=== PATIENT | male | born 1950 | race Caucasian/White ===

== ENCOUNTER → 2017-04-28 | Outpatient (CLI) | payer OTHER | LOC: FIMAGING 17:40 | PROVIDERS: ATTEND Family Medicine | DX: M25.551 Pain in right hip (principal) ==

== ENCOUNTER 2017-08-13 10:15 | Inpatient (IN) | payer OTHER ==
[2017-08-13] MEDS ORDERED: NS 1,000 ML IV ONE (10:41)
--- NOTE | 2017-08-13 10:43 | EDPHY ---
H & P Stated Complaint: RLQ abdo pain since 11.30pm and nausea. Time Seen by Provider: 08/13/17 10:33 HPI/ROS: CHIEF COMPLAINT: Abdominal pain HISTORY OF PRESENT ILLNESS: The patient is a 67-year-old man who comes to the emergency department complaining of right lower quadrant abdominal pain that began last night. No fever. Nausea but no vomiting. No diarrhea. No urinary symptoms. He has a history of robotic surgery for prostatic cancer as well as chemotherapy radiation to his abdomen for lymphoma 5 years ago. Yesterday he was shoveling and did not notice any pain or injury. After dinner last night however he began to have pain. REVIEW OF SYSTEMS: Constitutional: denies: chills, fever, recent illness, recent injury EENTM: denies: blurred vision, double vision, nose congestion Respiratory: denies: cough, shortness of breath Cardiac: denies: chest pain, irregular heart rate, lightheadedness, palpitations Gastrointestinal/Abdominal: See HPI Genitourinary: denies: dysuria, frequency, hematuria, pain Musculoskeletal: denies: joint pain, muscle pain Skin: denies: lesions, rash, jaundice, bruising Neurological: denies: headache, numbness, paresthesia, tingling, dizziness, weakness Hematologic/Lymphatic: denies: blood clots, easy bleeding, easy bruising Immunologic/allergic: denies: HIV/AIDS, transplant EXAM: GENERAL: Well-appearing, well-nourished and in no acute distress. HEAD: Atraumatic, normocephalic. EYES: Pupils equal round and reactive to light, extraocular movements intact, sclera anicteric, conjunctiva are normal. ENT: TMs normal, nares patent, oropharynx clear without exudates. Moist mucous membranes. NECK: Normal range of motion, supple without lymphadenopathy or JVD. LUNGS: Breath sounds clear to auscultation bilaterally and equal. No wheezes rales or rhonchi. HEART: Regular rate and rhythm without murmurs, rubs or gallops. ABDOMEN: Mild tender right lower quadrant, normoactive bowel sounds. No guarding, no rebound. No masses appreciated. BACK: No CVA tenderness, no spinal tenderness, step-offs or deformities EXTREMITIES: Normal range of motion, no pitting or edema. No clubbing or cyanosis. NEUROLOGICAL: Cranial nerves II through XII grossly intact. Normal speech, normal gait. 5/5 strength, normal movement in all extremities, normal sensation PSYCH: Normal mood, normal affect. SKIN: Warm, dry, normal turgor, no visible rashes or lesions. Source: Patient Exam Limitations: No limitations - Personal History Current Tetanus Diphtheria and Acellular Pertussis (TDAP): Yes Tetanus Vaccine Date: 2004 - Medical/Surgical History Hx Asthma: No Hx Chronic Respiratory Disease: No Hx Diabetes: No Hx Cardiac Disease: No Hx Renal Disease: No Hx Cirrhosis: No Hx Alcoholism: No Hx HIV/AIDS: No Hx Splenectomy or Spleen Trauma: No Other PMH: Prostate cancer. Lymphoma. - Family History Significant Family History: No pertinent family hx - Social History Smoking Status: Never smoked Alcohol Use: Sober Drug Use: None Constitutional: Initial Vital Signs Temperature (C) 36.8 C 08/13/17 10:17 Heart Rate 65 08/13/17 10:17 Respiratory Rate 16 08/13/17 10:17 Blood Pressure 145/77 H 08/13/17 10:17 O2 Sat (%) 97 08/13/17 10:17 O2 Delivery Mode Room Air Allergies/Adverse Reactions: sulfamethoxazole [From Junra] Allergy (Unknown, Verified 12/23/11 13:19) Unknown trimethoprim [From Junra] Allergy (Unknown, Verified 12/23/11 13:19) Unknown latex Allergy (Verified 08/13/17 13:08) Home Medications: Medication Instructions Recorded Aspirin EC [Aspirin EC 81 mg (*)] 81 - 162 mg PO DAILY@1200 08/13/17 Ezetimibe [Zetia 10 MG (*)] 5 mg PO DAILY 08/13/17 Herbals/Supplements -Info Only 1 ea PO DAILY 08/13/17 Multivitamins [Multivitamin (*)] 1 each PO DAILY 08/13/17 [place]-3 Fatty Acids [Fish Oil 1000 1,000 mg PO DAILY 08/13/17 mg (*)] Pravastatin Sodium [Pravachol] 5 mg PO DAILY 08/13/17 Pregabalin [Lyrica 75mg (*)] 75 mg PO TID 08/13/17 Vitamin B Complex [B Complex] 1 each PO DAILY 08/13/17 traZODone [traZODONE 50MG (*)] 50 mg PO HS PRN 08/13/17 Medical Decision Making ED Course/Re-evaluation: 12:[address]. discussed the case Dr. Cantor who will consult. Patient continues to decline pain medication. He is allergic to sulfa. Differential Diagnosis: Partial list of the Differential diagnosis considered include but were not limited to; appendicitis, constipation and although unlikely based on the history and physical exam, I also considered abscess, ischemia, volvulus. - Data Points Laboratory Results: Laboratory Results 08/13/17 10:55 08/13/17 10:55 Medications Given: Acetaminophen (Tylenol) 1,000 mg PO Q8H KEVON Stop: 02/09/18 14:14 Last Admin: 08/14/17 12:45 Dose: Not Given Enoxaparin Sodium (Lovenox) 30 mg SC BID KEVON Stop: 02/09/18 20:59 Last Admin: 08/14/17 09:10 Dose: 30 mg Dextrose/Sodium Chloride (D5w 1/2 Ns) 1,000 mls @ 100 mls/hr IV CONT KEVON Stop: 02/09/18 14:14 Last Admin: 08/13/17 23:44 Dose: 1,000 mls Ertapenem 1 gm/ Sodium (Chloride) 100 mls @ 200 mls/hr IV DAILY KEVON PRN Reason: Protocol Stop: 09/13/17 13:59 Last Admin: 08/14/17 14:01 Dose: 100 mls Ketorolac Tromethamine (Toradol) 15 mg IVP Q6HRS KEVON Stop: 08/18/17 17:59 Last Admin: 08/14/17 16:20 Dose: Not Given Rcces-5-Ahuf Ethyl Esters (Fish Oil) 1,000 mg PO DAILY KEVON Stop: 02/10/18 08:59 Last Admin: 08/14/17 09:10 Dose: 1,000 mg Pregabalin (Lyrica) 75 mg PO TID KEVON Stop: 02/09/18 15:59 Last Admin: 08/14/17 16:28 Dose: 75 mg Trazodone HCl (Trazodone) 75 mg PO HS PRN PRN Reason: Sleep/Insomnia Stop: 02/09/18 21:06 Last Admin: 08/13/17 23:44 Dose: 75 mg Vitamin B Complex (Vitamin B Complex) 1 ea PO DAILY KEVON Stop: 02/10/18 08:59 Last Admin: 08/14/17 09:10 Dose: 1 ea Discontinued Medications Acetaminophen (Tylenol) 1,000 mg PO Q8H KEVON Stop: 02/09/18 14:14 Last Admin: 08/13/17 16:25 Dose: Not Given Sodium Chloride (Ns) 1,000 mls @ 0 mls/hr IV EDNOW ONE; Wide Open PRN Reason: Protocol Stop: 08/13/17 10:42 Last Admin: 08/13/17 11:00 Dose: 1,000 mls Ertapenem 1 gm/ Sodium (Chloride) 100 mls @ 200 mls/hr IV EDNOW ONE PRN Reason: Protocol Stop: 08/13/17 13:20 Last Admin: 08/13/17 13:28 Dose: 100 mls Pregabalin (Lyrica) 75 mg PO TID [facility] Stop: 02/09/18 15:59 Last Admin: 08/13/17 18:48 Dose: Not Given Departure - Departure Disposition: [facility] In[facility] Acute Clinical Impression: Appendicitis Qualifiers: Appendicitis type: acute appendicitis Acute appendicitis type: unspecified acute appendicitis type Qualified Code(s): K35.80 - Unspecified acute appendicitis Condition: Fair
[2017-08-13 11:07] LABS: % IMMATURE GRANULYOCYTES 0.3 % (0.0-1.1); ABSOLUTE IMMATURE GRANULOCYTES 0.02 10^3/uL (0.00-0.10); ADD DIFF? NO; ADD MORPH? NO; ADD SCAN? NO; ATYPICAL LYMPHOCYTE FLAG 10 (0-99); FRAGMENT RBC FLAG 0 (0-99); HEMATOCRIT 39.2 % (40.0-51.0); HEMOGLOBIN 13.4 g/dL (13.7-17.5); LEFT SHIFT FLG 0 (0-99); LIPEMIA HEMOLYSIS FLAG 90 (0-99); MEAN CELL HEMOGLOBIN 32.8 pg (27.9-34.1); MEAN CELL HEMOGLOBIN CONCENTR. 34.2 g/dL (32.4-36.7); MEAN CELL VOLUME 96.1 fL (81.5-99.8); MEAN PLATELET VOLUME 9.1 fL (8.7-11.7); PLATELET CLUMPS FLAG 0 (0-99); PLATELET COUNT 146 10^3/uL (150-400); RED BLOOD CELL COUNT 4.08 10^6/uL (4.40-6.38); RED CELL DISTRIBUTION WIDTH 12.4 % (11.5-15.2)
[2017-08-13 11:34] LABS: ALANINE AMINOTRANSFERASE 45 IU/L (21-72); ALKALINE PHOSPHATASE 71 IU/L (38-126); ANION GAP 11 mEq/L (8-16); ASPARTATE AMINOTRANSFERASE 40 IU/L (17-59); BILIRUBIN,TOTAL 0.9 mg/dL (0.1-1.4); BILIRUBIN-UNCONJUGATED 0.9 mg/dL (0.0-1.1); CALCIUM 9.2 mg/dL (8.5-10.4); CARBON DIOXIDE 26 mEq/l (22-31); CHLORIDE 100 mEq/L (97-110); CREATININE 0.9 mg/dL (0.7-1.3); GLOMERULAR FILTRATION RATE > 60; GLUCOSE 104 mg/dL (70-100); SODIUM 137 mEq/L (134-144); TOTAL PROTEIN 6.3 g/dL (6.3-8.2)
[2017-08-13] MEDS ORDERED: IOPAMIDOL (ISOVUE-300) 100 ML BTL ONE (11:47)
[2017-08-13 12:15] LABS: COLOR YELLOW; LEUKOCYTE ESTERASE,URINE NEGATIVE (NEGATIVE); NITRITE,URINE NEGATIVE (NEGATIVE)
[2017-08-13 12:17] LABS: MUCUS TRACE /lpf (NONE-1+)
[2017-08-13 12:21] LABS: WBC,URINE NONE SEEN /hpf (0-3)
[2017-08-13] MEDS ORDERED: ERTAPENEM 1 GM in NS 100 ML IV ONE (12:51)
[2017-08-13] MEDS ORDERED: ONDANSETRON 4 MG/2 ML VIAL IVP PRN (14:08)
[2017-08-13] MEDS ORDERED: traZODone 50 MG TAB PO PRN (14:14)
[2017-08-13] MEDS ORDERED: ACETAMINOPHEN 325 MG TAB PO SCH (14:15)
--- NOTE | 2017-08-13 14:51 | GHP ---
[f rep st] PREOP HISTORY AND PHYSICAL DATE OF ADMISSION: 08/13/2017 ADMITTING DIAGNOSIS: Possible subacute appendicitis. HISTORY OF PRESENT ILLNESS: The patient is a 67-year-old white male who was digging in a garden yesterday. He quit approximately 4:30. When he got back to his home in [place] at 10:30, he had sweet potato chips and ice cream. He had a slightly upset stomach, but he usually does after fatty food meal. He then developed right lower quadrant pain that did not improve. He moved his bowels; it was not better. He tried an hour later and again no improvement. The pain localized to the right lower quadrant. It was painful for him with each step and painful with cough. He had no weight loss. He has not had an upper respiratory tract infection recently but 2-1/2 half weeks ago was just the tail end of one. He did have a loose stool once on August 07. He has not had any travel outside the [place] or antibiotic use in the last 6 months. He has had no prior similar symptoms. Prior abdominal surgery has been a robotic prostatectomy. There is no history of inflammatory bowel disease. SOCIAL HISTORY: He does not smoke. He does not drink on a regular basis. He does have 1-2 glasses of wine per week. ALLERGIES: Sulfa drugs manifested by a rash. He may have a latex allergy. 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 He was treated with both chemotherapy and radiation. The radiation was abdominal. This was diagnosed through a left inguinal node biopsy site. He also has had a robotic resection of his prostate. Since the robotic prostate surgery, he has complained of pain in his left leg from thigh to foot and his right knee, including his calf and ankle. MEDICATIONS: He initially took Lyrica 50 mg 3 times a day for that leg pain but , after his radiation therapy and chemotherapy, it was increased to 75. He does take trazodone 50 mg on a rare basis. He does take fish oil, multivitamin , vitamin B complex, an 81 mg aspirin. He takes pravastatin every 3 days and Zetia every 3 days at 5 mg each. If he takes it every other day, he gets abdominal cramping. PAST SURGICAL HISTORY: Other surgeries include a rotator cuff and labral surgery on the left and rotator cuff surgery on the right. Other surgeries include a tonsillectomy. He has had a transfusion with his lymphoma as well as an autologous stem cell transfusion. There is no history of rheumatic fever, tuberculosis, or hepatitis. REVIEW OF SYSTEMS: He used to be hypertensive when he was working but, now that he is retired, he no longer requires medication. He did have an episode of chest pain and underwent an angio. There was some narrowing noted but nothing that was thought to require a stent. He wears lenses for visual correction. He has dental crowns x2. He has hay fever. He used to have exercise-induced asthma and he would bicycle race, but does not anymore. He does have urinary dribbling after his prostate surgery. No limits on his activities. No history of steroid use. PHYSICAL EXAMINATION: GENERAL: He is awake and alert, conversant and pleasant. LYMPH NODES: There is no cervical, supraclavicular, axillary or inguinal lymphadenopathy. NECK: There are no carotid bruits. LUNGS: Clear to auscultation. CARDIAC: Shows S1, S2 to be normal. ABDOMEN: Psoas and obturator signs to be negative. He has tenderness with cough that is 7 on a scale of 1-10, inferior to McBurney's point. To palpation , his tenderness on a scale of 1-10 is 1 in the left upper quadrant, 2 in the left mid abdomen, 1 in left lower quadrant, 1 in epigastrium, 2 in the periumbilical region, 1 in the suprapubic region, 1 in the right upper quadrant , 3 in the right mid abdomen, 2 in the right lower quadrant. LABORATORY DATA: His urinalysis shows specific gravity 1.016. His creatinine is 0.9. BUN is 20. His glucose is 106. His white count is 6.2 with 86% neutrophils. Hematocrit is 34. CT of his abdomen shows calcifications in his pancreas, consistent with chronic pancreatitis. His distal pancreas is almost completely gone except for a prominent pancreatic duct. He does have an appendix which at one point is 8 mm and maybe slightly thickened. There is no real periappendiceal stranding. There also is not any obvious lymphadenopathy. IMPRESSION: At this point, I feel he may have a low-grade early appendicitis, but I cannot totally make that diagnosis at this time. Given his prior issues, I think an antibiotic approach is reasonable in this case. He will be admitted to the hospital for antibiotic therapy. /[id number]/MODL MTDD
[2017-08-13] MEDS: D5W 1/2 NS 1,000 ML IV SCH ×2 (15:33→23:44)
[2017-08-13] MEDS ORDERED: PREGABALIN 75 MG CAP PO SCH (16:00)
[2017-08-13] MEDS: ACETAMINOPHEN 500 MG TAB PO SCH ×2 (16:24→22:06)
[2017-08-13] MEDS: KETOROLAC 15 MG/1 ML SDV IVP SCH (16:41)
[2017-08-13] MEDS: ENOXAPARIN 30 MG/0.3 ML SYR SC SCH (19:38)
[2017-08-13] MEDS: PREGABALIN 75 MG CAP PO SCH (22:05)
[2017-08-13] MEDS: traZODone 50 MG TAB PO PRN (23:44)
[2017-08-14 05:18] LABS: % IMMATURE GRANULYOCYTES 0.5 % (0.0-1.1); ABSOLUTE IMMATURE GRANULOCYTES 0.03 10^3/uL (0.00-0.10); ADD DIFF? NO; ADD MORPH? NO; ADD SCAN? NO; ATYPICAL LYMPHOCYTE FLAG 10 (0-99); FRAGMENT RBC FLAG 0 (0-99); HEMATOCRIT 34.7 % (40.0-51.0); HEMOGLOBIN 12.1 g/dL (13.7-17.5); LEFT SHIFT FLG 0 (0-99); LIPEMIA HEMOLYSIS FLAG 90 (0-99); MEAN CELL HEMOGLOBIN 33.4 pg (27.9-34.1); MEAN CELL HEMOGLOBIN CONCENTR. 34.9 g/dL (32.4-36.7); MEAN CELL VOLUME 95.9 fL (81.5-99.8); MEAN PLATELET VOLUME 9.2 fL (8.7-11.7); PLATELET CLUMPS FLAG 10 (0-99); PLATELET COUNT 138 10^3/uL (150-400); RED BLOOD CELL COUNT 3.62 10^6/uL (4.40-6.38); RED CELL DISTRIBUTION WIDTH 12.5 % (11.5-15.2)
[2017-08-14 05:31] LABS: ANION GAP 9 mEq/L (8-16); CALCIUM 8.3 mg/dL (8.5-10.4); CARBON DIOXIDE 25 mEq/l (22-31); CHLORIDE 101 mEq/L (97-110); GLOMERULAR FILTRATION RATE > 60; GLUCOSE 137 mg/dL (70-100); SODIUM 135 mEq/L (134-144)
[2017-08-14] MEDS: OMEGA-3 FATTY ACIDS 1,000 MG CAP PO SCH (09:10)
[2017-08-14] MEDS: VITAMIN B COMPLEX 1 EA CAP/TAB PO SCH (09:10)
[2017-08-14] MEDS: PREGABALIN 75 MG CAP PO SCH ×3 (09:10→23:22)
[2017-08-14] MEDS: KETOROLAC 15 MG/1 ML SDV IVP SCH ×4 (09:10→16:20)
[2017-08-14] MEDS: ACETAMINOPHEN 500 MG TAB PO SCH ×3 (09:10→21:47)
[2017-08-14] MEDS: ENOXAPARIN 30 MG/0.3 ML SYR SC SCH ×2 (09:10→21:47)
--- NOTE | 2017-08-14 10:55 | SOAPPROG ---
SOAP Progress Note Assessment/Plan: Assessment/Plan: 67yo M c extensive PMH c poss early appendicitis - Overnight, afebrile and pain well controlled. His WBC remains normal at 6 from 6 without shift. - He is minimally tender to palpation in the RLQ and his exam is overall reassuring - Will cont conservative management given the patients extensive medical and surgical history and given the progress made over the last 24hrs. Given his extensive PMH/PSH the patient will need to remain inpatient in order to receive proper treatment. - Will plan to start clears today and see how he tolerates 08/14/17 10:53 Subjective: Pain still there, maybe better but not worse. No fevers. Wants to eat Objective: Vital Signs Temp Pulse Resp BP Pulse Ox 36.7 C 66 16 104/61 92 08/14/17 08:00 08/14/17 08:00 08/14/17 08:00 08/14/17 08:00 08/14/17 08:00 Laboratory Results 08/14/17 04:34 08/14/17 04:34 08/13/17 08/14/17 08/15/17 05:59 05:59 05:59 Intake Total 672 Balance 672 ICD10 Worksheet Patient Problems: Problems Problem Status Onset Appendicitis Acute
[2017-08-14] MEDS: ERTAPENEM 1 GM in NS 100 ML IV SCH (14:01)
--- NOTE | 2017-08-14 16:47 | ASMTCMCOM ---
CM Note CM Note Notes: Spoke w/RN, anticipate pt will dc home w/support of when medically stable. CM available for any changes. Date Signed: 08/14/2017 04:46 PM Electronically Signed By:Soni Castañeda RN
[2017-08-14] MEDS: traZODone 50 MG TAB PO PRN (23:23)
[2017-08-14] MEDS: D5W 1/2 NS 1,000 ML IV SCH (23:23)
[2017-08-15] MEDS: KETOROLAC 15 MG/1 ML SDV IVP SCH ×4 (00:37→17:47)
[2017-08-15 05:36] LABS: % IMMATURE GRANULYOCYTES 0.4 % (0.0-1.1); ABSOLUTE IMMATURE GRANULOCYTES 0.02 10^3/uL (0.00-0.10); ADD DIFF? NO; ADD MORPH? NO; ADD SCAN? NO; ATYPICAL LYMPHOCYTE FLAG 10 (0-99); FRAGMENT RBC FLAG 0 (0-99); HEMATOCRIT 32.5 % (40.0-51.0); LEFT SHIFT FLG 0 (0-99); LIPEMIA HEMOLYSIS FLAG 90 (0-99); MEAN CELL HEMOGLOBIN CONCENTR. 33.8 g/dL (32.4-36.7); MEAN CELL VOLUME 97.6 fL (81.5-99.8); MEAN PLATELET VOLUME 9.1 fL (8.7-11.7); PLATELET CLUMPS FLAG 0 (0-99); PLATELET COUNT 127 10^3/uL (150-400); RED BLOOD CELL COUNT 3.33 10^6/uL (4.40-6.38); RED CELL DISTRIBUTION WIDTH 12.6 % (11.5-15.2)
[2017-08-15] MEDS: ACETAMINOPHEN 500 MG TAB PO SCH ×3 (06:07→23:35)
--- NOTE | 2017-08-15 07:49 | SOAPPROG ---
SOAP Progress Note Assessment/Plan: PAD#2 08/15/2017 Assessment: Appendicitis - Pain improved. VVS. WBC -ok - Non-operative approach for early appendicitis seems to be effective Chronic Pancreatitis - HbA1C 6.0 - patient stable Plan: Appendicitis/RLQ pain - Continue clear liquids and IV antibiotics until pain resolves the switch to oral antibiotics Chronic pancreatitis - Will refer to PMD for consideration for consideration of pancreatic enzyme supplements and Glucose monitoring 08/15/17 07:51 Subjective: Pain still present but improved Objective: Vital Signs Temp Pulse Resp BP Pulse Ox 36.7 C 47 L 15 112/64 91 L 08/15/17 04:00 08/15/17 04:00 08/15/17 04:00 08/15/17 04:00 08/15/17 04:00 Laboratory Results 08/15/17 04:34 08/14/17 04:34 08/14/17 08/15/17 08/16/17 05:59 05:59 05:59 Intake Total 672 2400 Balance 672 2400 - Time Spent With Patient Time Spent With Patient: 25 - Pending Discharge Pending Discharge Within 24 Hours: No Pending Discharge Within 48 Hours: No Physical Exam - Physical Exam General Appearance: WD/WN, alert, mild distress Neck: non-tender, full range of motion, supple Respiratory: chest non-tender, lungs clear, normal breath sounds Cardiac/Chest: regular rate, rhythm Abdomen: normal bowel sounds, soft, other (Still mildly tender in RLQ with cough ) Male Genitalia: deferred Rectal: deferred Back: Normal inspection Skin: normal color, warm/dry Neuro/Psych: no motor/sensory deficits, alert, normal mood/affect ICD10 Worksheet Patient Problems: Problems Problem Status Onset Appendicitis Acute
[2017-08-15] MEDS ORDERED: PRAVASTATIN SODIUM 10 MG TAB PO SCH (09:00)
[2017-08-15] MEDS ORDERED: EZETIMIBE 10 MG TAB PO SCH (09:00)
[2017-08-15] MEDS: ERTAPENEM 1 GM in NS 100 ML IV SCH (09:04)
[2017-08-15] MEDS: OMEGA-3 FATTY ACIDS 1,000 MG CAP PO SCH (09:05)
[2017-08-15] MEDS: VITAMIN B COMPLEX 1 EA CAP/TAB PO SCH (09:05)
[2017-08-15] MEDS: PREGABALIN 75 MG CAP PO SCH ×3 (09:05→22:51)
[2017-08-15] MEDS: ENOXAPARIN 30 MG/0.3 ML SYR SC SCH ×2 (09:05→23:35)
[2017-08-15] MEDS: traZODone 50 MG TAB PO PRN (22:51)
[2017-08-16] MEDS: KETOROLAC 15 MG/1 ML SDV IVP SCH ×4 (00:25→17:55)
[2017-08-16] MEDS: ACETAMINOPHEN 500 MG TAB PO SCH ×3 (06:58→21:52)
[2017-08-16] MEDS: OMEGA-3 FATTY ACIDS 1,000 MG CAP PO SCH (08:20)
[2017-08-16] MEDS: PREGABALIN 75 MG CAP PO SCH ×3 (08:20→21:48)
[2017-08-16] MEDS: VITAMIN B COMPLEX 1 EA CAP/TAB PO SCH (08:20)
[2017-08-16] MEDS: ERTAPENEM 1 GM in NS 100 ML IV SCH (08:20)
[2017-08-16] MEDS: ENOXAPARIN 30 MG/0.3 ML SYR SC SCH ×2 (08:21→21:53)
--- NOTE | 2017-08-16 11:54 | SOAPPROG ---
SOAP Progress Note Assessment/Plan: PAD#2 08/15/2017 Assessment: Appendicitis - Pain improved. VVS. WBC -ok - Non-operative approach for early appendicitis seems to be effective Chronic Pancreatitis - HbA1C 6.0 - patient stable Plan: Appendicitis/RLQ pain - Continue clear liquids and IV antibiotics until pain resolves the switch to oral antibiotics Chronic pancreatitis - Will refer to PMD for consideration for consideration of pancreatic enzyme supplements and Glucose monitoring PAD#3 08/16/17 11:50 Assessment: Appendicitis/RLQ pain - Advance diet and change to oral antibiotics. Will check CBC in AM. Chronic pancreatitis - Will refer to PMD for consideration for consideration of pancreatic enzyme supplements and Glucose monitoring Spent [address] with patient and , answering questions and reviewing endocrine and digestive functions of Pancrease. Subjective: 08/16/2017 I'm feeling much better! Objective: Vital Signs Temp Pulse Resp BP Pulse Ox 36.8 C 50 L 18 122/70 H 94 08/16/17 11:37 08/16/17 11:37 08/16/17 11:37 08/16/17 11:37 08/16/17 11:37 Laboratory Results 08/15/17 04:34 08/14/17 04:34 08/15/17 08/16/17 08/17/17 05:59 05:59 05:59 Intake Total 2400 1625 Balance 2400 1625 - Time Spent With Patient Time Spent With Patient: 25 Physical Exam - Physical Exam General Appearance: WD/WN, alert, no apparent distress Respiratory: chest non-tender, lungs clear, normal breath sounds Cardiac/Chest: regular rate, rhythm Abdomen: normal bowel sounds, non-tender, soft ICD10 Worksheet Patient Problems: Problems Problem Status Onset Appendicitis Acute
[2017-08-16] MEDS ORDERED: AMOX/CLAVULANATE 500/125 MG TAB PO SCH (12:00)
[2017-08-17] MEDS: KETOROLAC 15 MG/1 ML SDV IVP SCH ×2 (01:58→05:10)
[2017-08-17] MEDS: ACETAMINOPHEN 500 MG TAB PO SCH (05:10)
[2017-08-17 05:29] LABS: % IMMATURE GRANULYOCYTES 0.7 % (0.0-1.1); ABSOLUTE IMMATURE GRANULOCYTES 0.02 10^3/uL (0.00-0.10); ADD DIFF? NO; ADD MORPH? NO; ADD SCAN? NO; ATYPICAL LYMPHOCYTE FLAG 20 (0-99); FRAGMENT RBC FLAG 0 (0-99); HEMATOCRIT 33.1 % (40.0-51.0); HEMOGLOBIN 11.4 g/dL (13.7-17.5); LEFT SHIFT FLG 0 (0-99); LIPEMIA HEMOLYSIS FLAG 90 (0-99); MEAN CELL HEMOGLOBIN 32.9 pg (27.9-34.1); MEAN CELL HEMOGLOBIN CONCENTR. 34.4 g/dL (32.4-36.7); MEAN CELL VOLUME 95.7 fL (81.5-99.8); MEAN PLATELET VOLUME 9.3 fL (8.7-11.7); PLATELET CLUMPS FLAG 0 (0-99); PLATELET COUNT 140 10^3/uL (150-400); RED BLOOD CELL COUNT 3.46 10^6/uL (4.40-6.38); RED CELL DISTRIBUTION WIDTH 12.4 % (11.5-15.2)
[2017-08-17 07:57] VITALS: BP 115/65; PULSE 48; RESP 18; TEMP 97.5; O2SAT 94
[2017-08-17] MEDS ORDERED: AMOXICILLIN/CLAVULANATE POT 875/125 MG TAB PO SCH (08:00)
[2017-08-17] MEDS: ENOXAPARIN 30 MG/0.3 ML SYR SC SCH (08:02)
[2017-08-17] MEDS: VITAMIN B COMPLEX 1 EA CAP/TAB PO SCH (08:03)
[2017-08-17] MEDS: OMEGA-3 FATTY ACIDS 1,000 MG CAP PO SCH (08:03)
[2017-08-17] MEDS: PREGABALIN 75 MG CAP PO SCH (08:04)
[2017-08-17] MEDS ORDERED: AMOX/CLAVULANATE 500/125 MG TAB PO SCH (09:00)
--- NOTE | 2017-08-17 10:01 | SOAPPROG ---
SOAP Progress Note Assessment/Plan: PAD#2 08/15/2017 Assessment: Appendicitis - Pain improved. VVS. WBC -ok - Non-operative approach for early appendicitis seems to be effective Chronic Pancreatitis - HbA1C 6.0 - patient stable Plan: Appendicitis/RLQ pain - Continue clear liquids and IV antibiotics until pain resolves the switch to oral antibiotics Chronic pancreatitis - Will refer to PMD for consideration for consideration of pancreatic enzyme supplements and Glucose monitoring PAD#3 08/16/17 11:50 Assessment: Appendicitis/RLQ pain - Advance diet and change to oral antibiotics. Will check CBC in AM. Chronic pancreatitis - Will refer to PMD for consideration for consideration of pancreatic enzyme supplements and Glucose monitoring Spent [address] with patient and , answering questions and reviewing endocrine and digestive functions of Pancrease. PAD#4 08/17/17 09:58 Assessment: Doing quite well. Afebrile. WBC back to usual low level. Tolerating both oral antibiotics and regular diet. Plan: Home today Subjective: I feel great Objective: Vital Signs Temp Pulse Resp BP Pulse Ox 36.4 C 48 L 18 115/65 94 08/17/17 07:54 08/17/17 07:54 08/17/17 07:54 08/17/17 07:54 08/17/17 07:54 Laboratory Results 08/17/17 05:08 08/14/17 04:34 08/16/17 08/17/17 08/18/17 05:59 05:59 05:59 Intake Total 1625 1500 Output Total 8 Balance 1625 1492 - Time Spent With Patient Time Spent With Patient: 15 Physical Exam - Physical Exam General Appearance: WD/WN, alert, no apparent distress Respiratory: lungs clear, normal breath sounds Cardiac/Chest: regular rate, rhythm Abdomen: normal bowel sounds, non-tender, soft Skin: normal color, warm/dry Extremities: normal range of motion, non-tender, normal inspection Neuro/Psych: no motor/sensory deficits, alert, normal mood/affect, oriented x 3 ICD10 Worksheet Patient Problems: Problems Problem Status Onset Appendicitis Acute
--- NOTE | 2017-08-17 10:30 | GDS ---
[f rep st] DISCHARGE SUMMARY DISCHARGE DIAGNOSIS: Resolved acute appendicitis with antibiotic therapy. CONDITION ON DISCHARGE: Improved. DISPOSITION: Home. DIET: There is no restriction on his diet at discharge, by I suggest he avoid constipating foods. HOME MEDICATIONS: Include amoxicillin, clavulanate (Augmentin) 875 every 12 hours for 5 days. He wi ll take Tylenol 1000 mg every 8 hours for 5 days, and Toradol 10 mg p.o. for 4 days. He will continu e his Zetia 10 mg daily, his herbal supplements, his multivitamin, his omega 3 fatty acids, his Prava chol 5 mg daily, his Lyrica 75 mg 3 times a day, his trazodone 50 mg p.o. at bedtime p.r.n. sleep. C ontinue his vitamin B complex. He will hold his aspirin until he is done with the Toradol. ACTIVITIES: Is as tolerated. FOLLOW UP: He is to follow up with Dr. Christiano Stock, Jason Alegria or Desire Trammell in 2 weeks as jagjit mora. HOSPITAL COURSE: The patient was admitted with a CT scan which was suspicious for possible early epifanio endicitis with no appendicolith. Attempt was made to treat this with antibiotics and appears to have worked. His temperature is normal. His white count is back to his usual low level with a normal di stribution of neutrophils and lymphocytes. He is instructed that should he have any recurrence of hi s pain, he is to come back right away. /[id number]/MODL
--- NOTE | 2017-08-18 09:47 | ASDISCHSUM ---
Discharge Information Plan Status:Home with No Needs Medically Cleared to Leave:08/16/2017 Discharge Date:08/17/2017 11:40 AM CM D/C Disposition: ADT D/C Disposition:Home, Routine, Self-Care Projected Discharge Date:08/17/2017 12:00 AM Transportation at D/C: Discharge Delay Reason: Follow-Up Date:08/17/2017 12:00 AM Discharge Slot: Final Diagnosis: Placement Information Patient Contact Information Contact Name:JOBY Relationship: Address:[address] City:[place] Alternate Phone: [facility]/Zip Code:[place] [address] Email: Financial Information Financial Class: Primary Plan Desc:MEDICARE INPATIENT Primary Plan Number:[id number] Secondary Plan Desc:TATI PPO Secondary Plan Number:[id number] Assessment Information [facility] CM Progress Note CM Note CM Note Notes: Spoke w/RN, anticipate pt will dc home w/support of when medically stable. CM available for any changes. Date Signed: 08/14/2017 04:46 PM Electronically Signed By:Soni Castañeda RN Intervention Information Intervention Type:*Incorrect Registration Date of Service:08/14/2017 08:56 AM Patient Type:Inpatient Staff Member:IKE Cisneros, Shey Hours: Discipline: Severity: Comment: Intervention Type:*IM-Signed Date of Service:08/17/2017 01:45 PM Patient Type:Inpatient Staff Member:Alison Ventura Hours: Discipline: Severity: Comment:
== END 2017-08-17 11:40 | disposition home or self-care (01) | DRG 394 ==
LOC: OBSVTOIN 14:09 → F3E 15:05
PROVIDERS: ADMIT Surgery; ATTEND Surgery
DX: K35.80 Unspecified acute appendicitis (principal); K86.1 Other chronic pancreatitis; Z85.46 Personal history of malignant neoplasm of prostate
CPT/HCPCS: 96365; J1335; J1650; J1885; Q9967

== ENCOUNTER → 2018-02-12 | Outpatient (CLI) | payer OTHER | LOC: FIMAGING 07:19 | PROVIDERS: ATTEND Surgery | DX: R10.11 Right upper quadrant pain (principal); K86.1 Other chronic pancreatitis ==

== ENCOUNTER → 2018-04-16 | Outpatient (CLI) | payer OTHER | LOC: FIMAGING 08:32 | PROVIDERS: ATTEND Surgery | DX: R10.11 Right upper quadrant pain (principal) | CPT/HCPCS: 78227; A9537 ==

== ENCOUNTER 2019-01-28 07:58 | Day surgery (SDC) | payer OTHER ==
--- NOTE | 2019-01-28 07:56 | PDHPUP ---
History & Physical Update H&P update statement: This history and physical update is based on an assessment of the patient which was completed after admission or registration (within 24 hours), but prior to the surgery/procedure. H&P update: H&P reviewed & patient examined, no change in patient's condition since H&P completed
[2019-01-28] MEDS ORDERED: ceFAZolin 2 GM/DEXTROSE 100 ML IV ONE (08:05)
[2019-01-28] MEDS ORDERED: LR 1,000 ML IV ONE (08:05)
[2019-01-28] MEDS ORDERED: BUPIVACAINE 0.5% 30 ML SDV ONE (08:12)
--- NOTE | 2019-01-28 08:16 | PDANEPAE ---
ANE History of Present Illness laparoscopic inguinal hernia repair, left ANE Past Medical History - Cardiovascular History Hx Hypertension: No Hx Arrhythmias: No Hx Chest Pain: No Hx Coronary Artery / Peripheral Vascular Disease: No Hx CHF / Valvular Disease: No Hx Palpitations: No Cardiovascular History Comment: hyperlipidemia - Pulmonary History Hx COPD: No Hx Asthma/Reactive Airway Disease: No Hx Recent Upper Respiratory Infection: No Hx Oxygen in Use at Home: No Hx Sleep Apnea: No Sleep Apnea Screening Result - Last Documented: Negative - Neurologic History Hx Cerebrovascular Accident: No Hx Seizures: No Hx Dementia: No - Endocrine History Hx Diabetes: No Hypothyroid: No Hyperthyroid: No Obesity: no - Renal History Hx Renal Disorders: No - Liver History Hx Hepatic Disorders: No - Neurological & Psychiatric Hx Hx Neurological and Psychiatric Disorders: Yes Neurological / Psychiatric History Comment: 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 power port 2012. prostate 2009. appendectomy 2017 ANE Review of Systems Review of Systems: - Exercise capacity METS (RN): 4 METS ANE Patient History - Allergies Allergies/Adverse Reactions: sulfamethoxazole [From Septra] Allergy (Unknown, Verified 01/18/19 09:47) Unknown trimethoprim [From Septra] Allergy (Unknown, Verified 01/18/19 09:47) Unknown latex Allergy (Verified 01/18/19 09:47) Other-Enter Comments - Home Medications Home medications: home medication list seen and reviewed Home Medications: Ezetimibe [Zetia 10 MG (*)] 08/13/17 [Last Taken 01/28/19 06:00] Herbals/Supplements -Info Only 08/13/17 [Last Taken 01/24/19] Multivitamins [Multivitamin (*)] 08/13/17 [Last Taken 01/24/19] Pregabalin [Lyrica 75mg (*)] 08/13/17 [Last Taken 01/28/19 06:00] Acetaminophen [Tylenol ES 500 mg (*)] 01/18/19 [Last Taken Unknown] Aspirin EC 81 mg (*) 01/18/19 [Last Taken 01/24/19] Cholesteroff 01/18/19 [Last Taken 01/24/19] Magnesium 01/18/19 [Last Taken 01/24/19] - Anes Hx Anes Hx: no prior problems - Smoking Hx Smoking Status: Never smoked - Family Anes Hx Family Hx Anesthesia Complications: none ANE Labs/Vital Signs - Vital Signs Height: 175.26 cm Weight: 68.946 kg ANE Physical Exam - Airway Neck exam: FROM Mallampati Score: Class 1 Mouth exam: normal dental/mouth exam - Pulmonary Pulmonary: no respiratory distress - Cardiovascular Cardiovascular: regular rate and rhythym - ASA Status ASA Status: II ANE Anesthesia Plan Anesthesia Plan: general endotracheal anesthesia
[2019-01-28] MEDS ORDERED: MIDAZOLAM 2 MG/2 ML VIAL IVP ONE (08:24)
[2019-01-28] MEDS ORDERED: PROPOFOL 200 MG/20 ML VIAL ONE (08:26)
[2019-01-28] MEDS ORDERED: MIDAZOLAM 2 MG/2 ML VIAL ONE (08:26)
[2019-01-28] MEDS ORDERED: fentaNYL 100 MCG/2 ML INJ ONE (08:26)
[2019-01-28] MEDS ORDERED: KETOROLAC 30 MG/1 ML SDV ONE (08:28)
[2019-01-28] MEDS ORDERED: DEXAMETHASONE 4 MG/ML VIAL ONE (08:28)
[2019-01-28] MEDS ORDERED: ONDANSETRON 4 MG/2 ML VIAL ONE (08:28)
[2019-01-28] MEDS ORDERED: ROCURONIUM 50 MG/5 ML VIAL ONE (08:28)
[2019-01-28] MEDS ORDERED: LIDOCAINE 2% 2 ML INJ ONE ×2 (08:29)
[2019-01-28] MEDS ORDERED: SUGAMMADEX SODIUM 200 MG/2 ML VIAL IVP ONE (08:29)
[2019-01-28] MEDS ORDERED: GLYCOPYRROLATE 0.2 MG/1 ML VIAL ONE (09:01)
[2019-01-28] MEDS ORDERED: oxyCODONE IR 5 MG TAB PO PRN (09:06)
[2019-01-28] MEDS ORDERED: fentaNYL 100 MCG/2 ML INJ IVP PRN (09:06)
[2019-01-28] MEDS ORDERED: NALOXONE HCL 0.4 MG/ML INJ IVP PRN (09:06)
[2019-01-28] MEDS ORDERED: LR 500 ML IV PRN (09:06)
[2019-01-28] MEDS ORDERED: HYDROCODONE/APAP 5/325 TAB PO PRN (09:06)
[2019-01-28] MEDS ORDERED: ACETAMINOPHEN 500 MG TAB PO PRN (09:06)
[2019-01-28] MEDS ORDERED: PROMETHAZINE HCL 25 MG/ML INJ IVP PRN (09:06)
[2019-01-28] MEDS ORDERED: ALBUTEROL 3 ML DEYVIAL IH PRN (09:06)
[2019-01-28] MEDS ORDERED: HYDROmorphONE/DILAUDID 1 MG/ML INJ IVP PRN (09:06)
[2019-01-28] MEDS ORDERED: ONDANSETRON 4 MG/2 ML VIAL IVP PRN (09:06)
--- NOTE | 2019-01-28 09:06 | POSTANESTH ---
Post Anesthetic Evaluation Cardiovascular Status: Normal, Stable Respiratory Status: Normal, Stable Level of Consciousness/Mental Status: Can Participate in Eval, Mildly Sleepy, Arousable Pain Control: Adequate, Prn Tx Ordered Nausea/Vomiting Control: Adequate, Prn Tx Ordered Complications Possibly Related to Anesthesia: None Noted
--- NOTE | 2019-01-28 10:21 | POSTOPPROG ---
Post Op Note Date of Operation: 01/28/19 Surgeon: Christiano Stock [employer] Officer: Rogelio Anesthesiologist: Itzel Anesthesia: GET(General Endotracheal) Pre-op Diagnosis: LIH Post-op Diagnosis: same Indication: same Procedure: lap LIH repair with mesh, exploration of R side Findings: Direct LIH Inf/Abcess present in the surg proc area at time of surgery?: No Depth: Deep Incisional (Fascial) EBL: Minimal
[2019-01-28 11:05] VITALS: BP 148/80
--- NOTE | 2019-01-28 13:23 | CPEKG ---
Test Reason : OPEN Blood Pressure : / mmHG Vent. Rate : 042 BPM Atrial Rate : 042 BPM P-R Int : 194 ms QRS Dur : 107 ms QT Int : 462 ms P-R-T Axes : 036 078 057 degrees QTc Int : 386 ms Sinus bradycardia Ventricular premature complex Abnormal R-wave progression, early transition Confirmed by Andrés Ogden ([id number]) on 01/28/2019 1:22:41 PM Referred By: Christiano Stock Confirmed By:Andrés Ogden
--- NOTE | 2019-01-31 01:49 | GOP ---
[f rep st] OPERATIVE REPORT DATE OF OPERATION: 01/28/2019 SURGEON: Christiano Stock MD SOFTWARE INSTALLATION ENGINEER: Farrah Mercado NP. ANESTHESIOLOGIST: Kieran Dow MD. PREOPERATIVE DIAGNOSIS: Left inguinal hernia. POSTOPERATIVE DIAGNOSIS: Left inguinal hernia. PROCEDURE PERFORMED: Laparoscopic left inguinal hernia repair with exploration of the right. FINDINGS: The patient was found to have a direct left inguinal hernia with no evidence of herniation on the right side. DESCRIPTION OF PROCEDURE: The patient was take to the operating room where he received a satisfactor y general endotracheal anesthesia by Dr. Dow. He was placed in a supine position, prepped and raman ped in the usual sterile fashion. An infraumbilical incision was made and carried down through the s ubcutaneous tissue to the rectus sheath, which was incised. A subfascial tunnel was developed, and t he preperitoneal space was dissected free with a balloon dissector, which was replaced with CO2 insuf flation trocar. Two other trocars were placed in the midline under direct vision. Davy ligaments were exposed bilaterally, the cords were mobilized bilaterally, and a direct defect was identified. It was carefully reduced of some incarcerated omental tissue. There was no evidence of an indirect s ac. Hemostasis was carefully obtained. A Covidien polyester mesh patch was inserted. A split patch was used to pass the limb around the cord structures. It was anchored in place with AbsorbaTack, se curing it to Davy ligament, to the lacunar ligament, the anterior abdominal wall, and the lateral a bdominal wall outside the internal ring. Hemostasis was assured. The right side was also examined, but there was no apparent hernia. There was a fair amount of scar tissue on both sides from his prev ious prostatectomy. Trocars were removed under direct vision. Trocar sites were closed with 0 Vicry l for the fascia, 4-0 Monocryl subcuticular stitch for the skin, and all layers infiltrated with 0.5% Marcaine. Blood loss was negligible. He was taken to the recovery room in good condition. There w ere no complications. /[id number]/MODL
== END 2019-01-28 12:26 | disposition home or self-care (01) ==
LOC: FSGY 07:58
PROVIDERS: ATTEND Surgery
PROC: 0YU64JZ Supplement Left Inguinal Region with Synthetic Substitute, Percutaneous Endoscopic Approach (ICD-10-PCS; principal; 2019-01-28 09:30)
DX: K40.90 Unilateral inguinal hernia, without obstruction or gangrene, not specified as recurrent (principal); E78.5 Hyperlipidemia, unspecified; G57.92 Unspecified mononeuropathy of left lower limb
CPT/HCPCS: C1727; C1781; J0690; J1100; J1885; J2250; J2405; J2704; J3010